=== PATIENT | female | born 1945 | race Caucasian/White ===

== ENCOUNTER → 2019-07-27 | Outpatient (CLI) | payer MEDICARE, OTHER ==
[~2019-07-27] MED LIST: APIX5TAB PO; ASPI-1197 PO; CHOL200041 PO; FEXO180T94 PO; HYDR-2534 PO; KRIL1CAP18 PO; LEVO5TAB13 PO; LOVA20TA3 PO; METO25 PO; UBID100C10 PO
== END | disposition home or self-care (01) ==
LOC: SHCH 13:13
PROVIDERS: ATTEND Internal Medicine Cardiovascular Disease
DX: R01.1 Cardiac murmur, unspecified (principal); R09.89 Other specified symptoms and signs involving the circulatory and respiratory systems
CPT/HCPCS: 93306; 93356; 93880

== ENCOUNTER → 2019-07-27 | Outpatient (CLI) | payer OTHER | END | disposition home or self-care (01) | LOC: OIH 13:13 | PROVIDERS: ATTEND Internal Medicine Cardiovascular Disease | DX: Z13.6 Encounter for screening for cardiovascular disorders (principal); J84.10 Pulmonary fibrosis, unspecified; D73.89 Other diseases of spleen | CPT/HCPCS: 75571 ==

== ENCOUNTER 2021-01-08 06:13 | Day surgery (SDC) | payer MEDICARE, OTHER ==
[2021-01-05 11:36] LABS: BASOPHILS % (AUTO) 0.3 % (0.0-5.0); EOSINOPHILS % (AUTO) 3.3 % (0.0-8.0); HEMATOCRIT 41.2 % (36-48); LYMPHOCYTES % (AUTO) 27.5 % (21.0-51.0); MEAN CORPUSCULAR HEMOGLOBIN 32.9 pg (27.0-33.0); MEAN CORPUSCULAR HGB CONC 32.8 g/dL (32.0-36.0); MEAN CORPUSCULAR VOLUME 100.5 fL (79-99); MONOCYTES % (AUTO) 7.6 % (3.0-13.0); NEUTROPHILS % (AUTO) 61.1 % (40.0-77.0); PLATELET COUNT (AUTO) 123 K/uL (130-400); RED CELL DISTRIBUTION WIDTH 13.9 % (11.0-15.5); WHITE BLOOD COUNT (AUTO) 6.6 K/uL (4.8-10.8)
[2021-01-05 11:57] LABS: CREATININE 0.7 mg/dL (0.5-1.5); POTASSIUM 4.1 mmol/L (3.5-5.1)
[2021-01-05 14:17] VITALS: BP 165/83
[2021-01-08] VITALS (12 sets, daily range): BP systolic 118–152; BP diastolic 58–81
[~2021-01-08] VITALS: Ht 172.7 cm; Wt 81.0 kg
[~2021-01-08 06:13] MED LIST changes: -ASPI-1197 PO; -CHOL200041 PO; +CLINDAMYCIN IVPB 900MG/50ML 50 ML IV SCH; -HYDR-2534 PO; +HYDR25TA PO; -KRIL1CAP18 PO; +KRIL1CAP19 PO; -LEVO5TAB13 PO; -METO25 PO; +METO25TA6 PO; +MONT10TA32 PO; +OXYB15TA19 PO; +RETIN A 0.05% TP; -UBID100C10 PO; +UBID100C45 PO; +VIT1CAPS5 PO
[2021-01-08] MEDS ORDERED: LACTATED RINGERS 1000ML 1,000 ML IV ONE (06:53)
[2021-01-08] MEDS ORDERED: BUPIVACAINE/PF 0.5% 30ML VIAL ONE (07:52)
[2021-01-08] MEDS ORDERED: IOPAMIDOL 10 ML VIAL ONE (08:07)
[2021-01-08] MEDS ORDERED: MIDAZOLAM HCL 1 MG/ML 2ML VIAL ONE (08:15)
[2021-01-08] MEDS: CEFAZOLIN SODIUM 1 GM VIAL ONE ×2 (08:15→08:22)
[2021-01-08] MEDS ORDERED: PROPOFOL 10 MG/ML 20ML VIAL IV ONE (08:17)
[2021-01-08] MEDS ORDERED: CEPH500B PO (09:00)
== END 2021-01-08 09:55 | disposition home or self-care (01) ==
LOC: DAH 06:13
PROVIDERS: ATTEND Orthopaedic Surgery
DX: M16.0 Bilateral primary osteoarthritis of hip (principal); G89.29 Other chronic pain; Z20.822 Contact with and (suspected) exposure to COVID-19; I10 Essential (primary) hypertension; K21.9 Gastro-esophageal reflux disease without esophagitis; I48.0 Paroxysmal atrial fibrillation; E78.5 Hyperlipidemia, unspecified; Z90.710 Acquired absence of both cervix and uterus; Z98.890 Other specified postprocedural states; Z82.49 Family history of ischemic heart disease and other diseases of the circulatory system
CPT/HCPCS: 20610; 36415; 73503; 80048; 85025; 87426; A4215; A4221; A4222; A4223; A4663; J0690; J1030; J2250; J2704; J3490; J7120; Q9966

== ENCOUNTER 2021-01-29 06:20 | Day surgery (SDC) | payer MEDICARE, OTHER ==
[2021-01-26 10:37] LABS: BASOPHILS % (AUTO) 0.5 % (0.0-5.0); EOSINOPHILS % (AUTO) 3.5 % (0.0-8.0); HEMATOCRIT 37.6 % (36-48); LYMPHOCYTES % (AUTO) 29.5 % (21.0-51.0); MEAN CORPUSCULAR HEMOGLOBIN 33.2 pg (27.0-33.0); MEAN CORPUSCULAR VOLUME 100.8 fL (79-99); MONOCYTES % (AUTO) 7.9 % (3.0-13.0); NEUTROPHILS % (AUTO) 58.3 % (40.0-77.0); PLATELET COUNT (AUTO) 113 K/uL (130-400); RED BLOOD CELL COUNT(AUTO) 3.73 MIL/uL (4.00-5.50); RED CELL DISTRIBUTION WIDTH 14.2 % (11.0-15.5); WHITE BLOOD COUNT (AUTO) 6.2 K/uL (4.8-10.8)
[2021-01-26 10:46] LABS: CREATININE 0.8 mg/dL (0.5-1.5); POTASSIUM 4.4 mmol/L (3.5-5.1)
[2021-01-26 15:25] VITALS: BP 129/63
[2021-01-29] VITALS (11 sets, daily range): BP systolic 128–160; BP diastolic 65–78
[~2021-01-29] VITALS: Ht 172.7 cm; Wt 81.7 kg
[~2021-01-29 06:20] MED LIST changes: -CLINDAMYCIN IVPB 900MG/50ML 50 ML IV SCH; -FEXO180T94 PO; +LISI20TA24 PO; -RETIN A 0.05% TP; -VIT1CAPS5 PO
[2021-01-29] MEDS: CEFAZOLIN SODIUM 1 GM VIAL ONE ×2 (06:38→08:18)
[2021-01-29] MEDS ORDERED: LACTATED RINGERS 1000ML 1,000 ML IV ONE (06:38)
[2021-01-29] MEDS ORDERED: IOPAMIDOL 10 ML VIAL ONE (07:54)
[2021-01-29] MEDS ORDERED: BUPIVACAINE/PF 0.5% 30ML VIAL ONE (07:59)
[2021-01-29] MEDS ORDERED: PROPOFOL 10 MG/ML 20ML VIAL IV ONE (08:13)
[2021-01-29] MEDS ORDERED: LIDOCAINE PF 100MG/5ML (2%) SYRINGE 5ML ONE (08:13)
[2021-01-29] MEDS ORDERED: SUCCINYLCHOLINE CHLORIDE 20 MG/ML 10 ML VIAL ONE (08:13)
[2021-01-29] MEDS ORDERED: FENTANYL CITRATE PF 50 MCG/1 ML 2ML VIAL ONE (08:14)
[2021-01-29] MEDS ORDERED: MIDAZOLAM HCL 1 MG/ML 2ML VIAL ONE (08:14)
== END 2021-01-29 09:51 | disposition home or self-care (01) ==
LOC: DAH 06:20
PROVIDERS: ATTEND Orthopaedic Surgery
DX: M16.12 Unilateral primary osteoarthritis, left hip (principal); Z20.822 Contact with and (suspected) exposure to COVID-19; I10 Essential (primary) hypertension; K21.9 Gastro-esophageal reflux disease without esophagitis; I48.0 Paroxysmal atrial fibrillation; E78.5 Hyperlipidemia, unspecified; Z79.899 Other long term (current) drug therapy; Z79.01 Long term (current) use of anticoagulants; Z90.710 Acquired absence of both cervix and uterus; Z98.890 Other specified postprocedural states; Z82.49 Family history of ischemic heart disease and other diseases of the circulatory system; Z72.89 Other problems related to lifestyle; Z88.8 Allergy status to other drugs, medicaments and biological substances
CPT/HCPCS: 20610; 36415; 73502; 80048; 85025; 87635; 93005; A4215; A4221; A4222; A4223; A4663; A4930; A5120; C9803; J0330; J0690; J1030; J2001; J2250; J2704; J3010; J3490; J7120; Q9966

== ENCOUNTER 2021-04-11 06:22 | Day surgery (SDC) | payer MEDICARE, OTHER ==
[2021-04-09 10:48] LABS: BASOPHILS % (AUTO) 0.5 % (0.0-5.0); EOSINOPHILS % (AUTO) 3.1 % (0.0-8.0); HEMATOCRIT 39.1 % (36-48); LYMPHOCYTES % (AUTO) 30.2 % (21.0-51.0); MEAN CORPUSCULAR HEMOGLOBIN 33.8 pg (27.0-33.0); MEAN CORPUSCULAR HGB CONC 33.5 g/dL (32.0-36.0); MEAN CORPUSCULAR VOLUME 100.8 fL (79-99); NEUTROPHILS % (AUTO) 57.2 % (40.0-77.0); PLATELET COUNT (AUTO) 134 K/uL (130-400); RED BLOOD CELL COUNT(AUTO) 3.88 MIL/uL (4.00-5.50); RED CELL DISTRIBUTION WIDTH 14.2 % (11.0-15.5); WHITE BLOOD COUNT (AUTO) 5.8 K/uL (4.8-10.8)
[2021-04-09 11:16] LABS: CREATININE 0.9 mg/dL (0.5-1.5); POTASSIUM 4.3 mmol/L (3.5-5.1)
[2021-04-10 11:00] VITALS: BP 127/67
[~2021-04-11] VITALS: Ht 172.7 cm; Wt 80.5 kg
[2021-04-11] VITALS (11 sets, daily range): BP systolic 114–145; BP diastolic 50–79
[~2021-04-11 06:22] MED LIST changes: +AZEL137S11 NS; +CALC-866 PO; +CLINDAMYCIN IVPB 900MG/50ML 50 ML IV SCH; +ESOM40CA PO; +FEXO180T94 PO; +MONT-39 PO; -MONT10TA32 PO; +MVIT PO; +POLY17PO4 PO
[2021-04-11] MEDS ORDERED: LACTATED RINGERS 1000ML 1,000 ML IV ONE (06:56)
[2021-04-11] MEDS: CEFAZOLIN SODIUM 1 GM VIAL ONE ×2 (07:02→08:05)
[2021-04-11] MEDS ORDERED: BUPIVACAINE/PF 0.5% 10ML VIAL ONE (07:22)
[2021-04-11] MEDS ORDERED: ISOVUE-M 200 20 ML VIAL IT ONE (07:26)
[2021-04-11] MEDS ORDERED: MIDAZOLAM HCL 1 MG/ML 2ML VIAL ONE (08:04)
[2021-04-11] MEDS ORDERED: PROPOFOL 10 MG/ML 20ML VIAL IV ONE (08:10)
== END 2021-04-11 10:20 | disposition home or self-care (01) ==
LOC: DAH 06:22
PROVIDERS: ATTEND Orthopaedic Surgery
DX: M16.11 Unilateral primary osteoarthritis, right hip (principal); Z20.822 Contact with and (suspected) exposure to COVID-19; I10 Essential (primary) hypertension; K21.9 Gastro-esophageal reflux disease without esophagitis; I48.0 Paroxysmal atrial fibrillation; E78.5 Hyperlipidemia, unspecified; Z98.890 Other specified postprocedural states; Z79.899 Other long term (current) drug therapy; Z79.01 Long term (current) use of anticoagulants
CPT/HCPCS: 20610; 36415; 80048; 85025; 87635; 93005; A4215; A4221; A4222; A4223; A4663; A4930; A5120; C9803; J0690; J1030; J2250; J2704; J3490; J7120; Q9966; 27093

== ENCOUNTER → 2021-05-22 | Outpatient (CLI) | payer MEDICARE, OTHER ==
[~2021-05-22] MED LIST changes: -CLINDAMYCIN IVPB 900MG/50ML 50 ML IV SCH
== END | disposition home or self-care (01) ==
LOC: SHCH 14:47
PROVIDERS: ATTEND Internal Medicine Cardiovascular Disease
DX: I11.0 Hypertensive heart disease with heart failure (principal); I50.32 Chronic diastolic (congestive) heart failure
CPT/HCPCS: 93306; 93356

== ENCOUNTER 2021-07-12 06:39 | Day surgery (SDC) | payer MEDICARE, OTHER ==
[2021-07-10 09:54] VITALS: BP 147/71
[2021-07-10 10:17] LABS: BASOPHILS % (AUTO) 0.4 % (0.0-5.0); EOSINOPHILS % (AUTO) 3.7 % (0.0-8.0); HEMATOCRIT 39.9 % (36-48); MEAN CORPUSCULAR HEMOGLOBIN 33.3 pg (27.0-33.0); MEAN CORPUSCULAR HGB CONC 32.3 g/dL (32.0-36.0); MEAN CORPUSCULAR VOLUME 103.1 fL (79-99); MONOCYTES % (AUTO) 9.3 % (3.0-13.0); NEUTROPHILS % (AUTO) 54.4 % (40.0-77.0); PLATELET COUNT (AUTO) 132 K/uL (130-400); RED BLOOD CELL COUNT(AUTO) 3.87 MIL/uL (4.00-5.50); RED CELL DISTRIBUTION WIDTH 14.4 % (11.0-15.5); WHITE BLOOD COUNT (AUTO) 4.9 K/uL (4.8-10.8)
[2021-07-10 10:21] LABS: CREATININE 0.8 mg/dL (0.5-1.5); POTASSIUM 4.5 mmol/L (3.5-5.1)
[2021-07-12] VITALS (12 sets, daily range): BP systolic 112–143; BP diastolic 53–78
[~2021-07-12] VITALS: Ht 172.7 cm; Wt 82.9 kg
[~2021-07-12 06:39] MED LIST changes: -AZEL137S11 NS; -CALC-866 PO; +CLINDAMYCIN IVPB 900MG/50ML 50 ML IV SCH; -ESOM40CA PO; -FEXO180T94 PO; -KRIL1CAP19 PO; +METO-408 PO; -METO25TA6 PO; -MVIT PO; -POLY17PO4 PO; -UBID100C45 PO
[2021-07-12] MEDS ORDERED: LACTATED RINGERS 1000ML 1,000 ML IV ONE (06:44)
[2021-07-12] MEDS ORDERED: CEFAZOLIN SODIUM 1 GM VIAL ONE (07:23)
[2021-07-12] MEDS ORDERED: MIDAZOLAM HCL 1 MG/ML 2ML VIAL ONE (07:36)
[2021-07-12] MEDS ORDERED: LIDOCAINE PF 100MG/5ML (2%) SYRINGE 5ML ONE (07:36)
[2021-07-12] MEDS ORDERED: PROPOFOL 10 MG/ML 20ML VIAL IV ONE (07:36)
[2021-07-12] MEDS ORDERED: FENTANYL CITRATE PF 50 MCG/1 ML 5ML AMP IV ONE (07:36)
[2021-07-12] MEDS ORDERED: BUPIVACAINE/PF 0.5% 30ML VIAL ONE (07:53)
[2021-07-12] MEDS ORDERED: IOPAMIDOL 10 ML VIAL ONE (07:58)
== END 2021-07-12 10:21 | disposition home or self-care (01) ==
LOC: DAH 06:39
PROVIDERS: ATTEND Orthopaedic Surgery
DX: M16.12 Unilateral primary osteoarthritis, left hip (principal); Z20.822 Contact with and (suspected) exposure to COVID-19; I10 Essential (primary) hypertension; I48.91 Unspecified atrial fibrillation; K21.9 Gastro-esophageal reflux disease without esophagitis; E78.5 Hyperlipidemia, unspecified; I48.0 Paroxysmal atrial fibrillation; Z88.8 Allergy status to other drugs, medicaments and biological substances; Z98.890 Other specified postprocedural states; Z90.710 Acquired absence of both cervix and uterus; Z82.49 Family history of ischemic heart disease and other diseases of the circulatory system; Z72.89 Other problems related to lifestyle
CPT/HCPCS: 20610; 36415; 73503; 80048; 85025; 87635; 93005; A4215; A4221; A4222; A4223; A4663; C9803; J0690; J1030; J2001; J2250; J2704; J3010; J3490; J7120; Q9966

== ENCOUNTER 2021-08-06 06:55 | Day surgery (SDC) | payer MEDICARE, OTHER ==
[2021-08-03 10:10] LABS: BASOPHILS % (AUTO) 0.2 % (0.0-5.0); EOSINOPHILS % (AUTO) 2.4 % (0.0-8.0); LYMPHOCYTES % (AUTO) 27.4 % (21.0-51.0); MEAN CORPUSCULAR HEMOGLOBIN 34.3 pg (27.0-33.0); MEAN CORPUSCULAR HGB CONC 33.1 g/dL (32.0-36.0); MEAN CORPUSCULAR VOLUME 103.7 fL (79-99); NEUTROPHILS % (AUTO) 60.8 % (40.0-77.0); PLATELET COUNT (AUTO) 133 K/uL (130-400); RED BLOOD CELL COUNT(AUTO) 4.05 MIL/uL (4.00-5.50); WHITE BLOOD COUNT (AUTO) 5.4 K/uL (4.8-10.8)
[2021-08-03 10:14] VITALS: BP 142/69
[2021-08-03 10:21] LABS: CREATININE 0.7 mg/dL (0.5-1.5); POTASSIUM 4.8 mmol/L (3.5-5.1)
[2021-08-06] VITALS (11 sets, daily range): BP systolic 123–140; BP diastolic 62–73
[~2021-08-06] VITALS: Ht 172.7 cm; Wt 80.8 kg
[~2021-08-06 06:55] MED LIST changes: -CLINDAMYCIN IVPB 900MG/50ML 50 ML IV SCH; +LACTATED RINGERS 1000ML 1,000 ML IV ONE; -MONT-39 PO; +[UNRECOGNIZED DRUG - CODE] TP
[2021-08-06] MEDS ORDERED: BUPIVACAINE/PF 0.5% 30ML VIAL ONE (07:36)
[2021-08-06] MEDS ORDERED: FAMOTIDINE 20MG VIAL IV ONE (07:43)
[2021-08-06] MEDS ORDERED: MIDAZOLAM HCL 1 MG/ML 2ML VIAL ONE (07:50)
[2021-08-06] MEDS ORDERED: PROPOFOL 10 MG/ML 20ML VIAL IV ONE (07:50)
[2021-08-06] MEDS ORDERED: PHENYLEPHRINE HCL 10 MG/ML 1ML VIAL IV ONE (07:54)
[2021-08-06] MEDS ORDERED: IOPAMIDOL 10 ML VIAL ONE (07:58)
[2021-08-06] MEDS ORDERED: CEFAZOLIN SODIUM 1 GM VIAL ONE (08:41)
== END 2021-08-06 10:20 | disposition home or self-care (01) ==
LOC: DAH 06:55
PROVIDERS: ATTEND Orthopaedic Surgery
DX: M16.11 Unilateral primary osteoarthritis, right hip (principal); Z20.822 Contact with and (suspected) exposure to COVID-19; G89.29 Other chronic pain; I10 Essential (primary) hypertension; K21.9 Gastro-esophageal reflux disease without esophagitis; I48.0 Paroxysmal atrial fibrillation; E78.5 Hyperlipidemia, unspecified; Z98.890 Other specified postprocedural states; Z98.51 Tubal ligation status; Z90.710 Acquired absence of both cervix and uterus; Z82.49 Family history of ischemic heart disease and other diseases of the circulatory system; Z72.89 Other problems related to lifestyle; Z88.8 Allergy status to other drugs, medicaments and biological substances
CPT/HCPCS: 20610; 36415; 73503; 80048; 85025; 87635; 93005; A4215; A4221; A4222; A4223; A4663; C9803; J0690; J1030; J2250; J2704; J3490 ×2; J7120; Q9966; J2370

== ENCOUNTER 2022-07-08 06:03 | Day surgery (SDC) | payer MEDICARE, OTHER ==
[2022-07-05 11:04] LABS: BASOPHILS % (AUTO) 0.4 % (0.0-5.0); EOSINOPHILS % (AUTO) 2.5 % (0.0-8.0); HEMATOCRIT 40.1 % (36-48); LYMPHOCYTES % (AUTO) 31.3 % (21.0-51.0); MEAN CORPUSCULAR HEMOGLOBIN 34.2 pg (27.0-33.0); MEAN CORPUSCULAR HGB CONC 34.2 g/dL (32.0-36.0); MONOCYTES % (AUTO) 9.5 % (3.0-13.0); NEUTROPHILS % (AUTO) 56.1 % (40.0-77.0); PLATELET COUNT (AUTO) 141 K/uL (130-400); RED BLOOD CELL COUNT(AUTO) 4.01 MIL/uL (4.00-5.50); RED CELL DISTRIBUTION WIDTH 13.5 % (11.0-15.5); WHITE BLOOD COUNT (AUTO) 4.8 K/uL (4.8-10.8)
[2022-07-05 11:11] VITALS: BP 142/77
[2022-07-05 11:17] LABS: ALBUMIN 4.1 g/dL (3.5-5.0); CARBON DIOXIDE 32 mmol/L (21-32); CHLORIDE 95 mmol/L (101-111); CREATININE 0.7 mg/dL (0.5-1.5); GLOMERULAR FILTR. RATE CALC 86 mL/min (>60); GLUCOSE,RANDOM 96 mg/dL (70-105); POTASSIUM 4.2 mmol/L (3.5-5.1); SODIUM SERUM 130 mmol/L (136-145); UREA NITROGEN, BLOOD 15 mg/dL (7-18)
[2022-07-05 11:22] LABS: CRP QUANTITATIVE < 2.00 mg/L (0.00-9.0)
[~2022-07-08] VITALS: Ht 172.7 cm; Wt 73.4 kg
[2022-07-08] VITALS (12 sets, daily range): BP systolic 114–134; BP diastolic 57–70
[~2022-07-08 06:03] MED LIST changes: +BUPIVACAINE/EPI/PF 0.25% 50 ML VIAL IJ ONE; +BUPIVACAINE/PF 0.25% 10ML VIAL IJ ONE; -LACTATED RINGERS 1000ML 1,000 ML IV ONE
[2022-07-08] MEDS ORDERED: LACTATED RINGERS 1000ML 1,000 ML IV ONE (06:24)
[2022-07-08] MEDS ORDERED: PROPOFOL 10 MG/ML 20ML VIAL IV ONE (07:09)
[2022-07-08] MEDS ORDERED: LIDOCAINE HCL-MPF 1% 5ML AMP IJ ONE (07:09)
[2022-07-08] MEDS ORDERED: FENTANYL CITRATE PF 50 MCG/1 ML 2ML VIAL ONE (07:09)
[2022-07-08] MEDS ORDERED: MIDAZOLAM HCL 1 MG/ML 2ML VIAL ONE (07:09)
[2022-07-08] MEDS ORDERED: ONDANSETRON 4MG INJ ONE (07:13)
[2022-07-08] MEDS ORDERED: IOHEXOL 180 MG/ML 20 ML VIAL ONE (07:41)
[2022-07-08] MEDS ORDERED: BUPIVACAINE/EPI/PF 0.25% 50 ML VIAL IJ ONE (07:47)
== END 2022-07-08 09:20 | disposition home or self-care (01) ==
LOC: DAH 06:03
PROVIDERS: ATTEND Student in an Organized Health Care Education/Training Program
DX: M16.11 Unilateral primary osteoarthritis, right hip (principal); Z20.822 Contact with and (suspected) exposure to COVID-19; G89.29 Other chronic pain; K21.9 Gastro-esophageal reflux disease without esophagitis; I10 Essential (primary) hypertension; E78.5 Hyperlipidemia, unspecified; I48.0 Paroxysmal atrial fibrillation; Z79.899 Other long term (current) drug therapy; Z79.82 Long term (current) use of aspirin
CPT/HCPCS: 87426; 82040; 80048; 85025; 84134; 86140; 36415; 93005; 20610; 77002; 73502; A4663; J7120; J2250; J2704; J2405; J1030 ×2; J3490 ×3; Q9965; A4215; A4223; A4222; A4221; J3010

== ENCOUNTER 2022-12-08 19:25 | Inpatient (IN) | payer MEDICARE, OTHER ==
[~2022-12-08] VITALS: Ht 172.7 cm; Wt 69.6 kg
[~2022-12-08 19:25] MED LIST changes: +AMLO2.5T4 PO; -BUPIVACAINE/EPI/PF 0.25% 50 ML VIAL IJ ONE; -BUPIVACAINE/PF 0.25% 10ML VIAL IJ ONE; +CYCL-309 PO; +DOCU-116 PO; +FEXO-263 PO; +HYDR-4060 PO; -LOVA20TA3 PO; +METR45G TP; +OMEP20CA12 PO; +PROM25TA7 PO
[2022-12-08 23:34] LABS: APPEARANCE,URINE CLEAR (CLEAR); BILIRUBIN,URINE NEGATIVE (NEGATIVE); COLOR,URINE LIGHT-YELLOW (YELLOW); GLUCOSE, URINE (UA) NEGATIVE (NEGATIVE); KETONES,URINE 5 mg/dL (NEGATIVE); LEUKOCYTE ESTERASE ,URINE NEGATIVE Leu/uL (NEGATIVE); NITRATE,URINE NEGATIVE (NEGATIVE); OCCULT BLOOD,URINE NEGATIVE (NEGATIVE); PH,URINE 6.5 (5.0-8.0); PROTEIN,URINE 30 mg/dL (NEGATIVE); UROBILINOGEN,URINE 0.2 mg/dL (0.2-1.0)
[2022-12-09 00:16] LABS: BASOPHILS % (AUTO) 0.4 % (0.0-5.0); EOSINOPHILS % (AUTO) 1.1 % (0.0-8.0); HEMATOCRIT 32.9 % (36-48); LYMPHOCYTES % (AUTO) 30.9 % (21.0-51.0); MEAN CORPUSCULAR HEMOGLOBIN 32.4 pg (27.0-33.0); MEAN CORPUSCULAR HGB CONC 34.7 g/dL (32.0-36.0); MEAN CORPUSCULAR VOLUME 93.5 fL (79-99); MONOCYTES % (AUTO) 12.3 % (3.0-13.0); NEUTROPHILS % (AUTO) 54.8 % (40.0-77.0); PLATELET COUNT (AUTO) 172 K/uL (130-400); RED BLOOD CELL COUNT(AUTO) 3.52 MIL/uL (4.00-5.50); WHITE BLOOD COUNT (AUTO) 7.3 K/uL (4.8-10.8)
[2022-12-09 00:32] LABS: ALBUMIN 3.6 g/dL (3.5-5.0); CREATININE 0.7 mg/dL (0.5-1.5); POTASSIUM 3.9 mmol/L (3.5-5.1); TOTAL PROTEIN, SERUM 7.7 g/dL (6.0-8.3)
[2022-12-09] MEDS ORDERED: IOHEXOL 350 MG/ML 100ML INFUS..BTL IV ONE (00:57)
[2022-12-09] MEDS ORDERED: 0.9%NACL 1000ML 1,000 ML IV SCH (01:00)
[2022-12-09] MEDS ORDERED: ACETAMINOPHEN 325 MG TAB PO PRN ×2 (04:00)
[2022-12-09] MEDS ORDERED: ONDANSETRON 4MG INJ IV PRN (04:00)
[2022-12-09] MEDS: 0.9%NACL 1000ML 1,000 ML IV SCH ×2 (05:19→17:55)
[2022-12-09] MEDS ORDERED: DOCUSATE SODIUM 100 MG CAP PO ONE (08:54)
[2022-12-09] MEDS: POLYETHYLENE GLYCOL 3350 17 GM POWD.PACK PO SCH (08:56)
[2022-12-09] MEDS: DOCUSATE SODIUM 100 MG CAP PO SCH (08:56)
[2022-12-09] MEDS: FAMOTIDINE 20MG TAB PO SCH ×2 (08:56→21:19)
[2022-12-09 09:20] LABS: CREATININE 0.6 mg/dL (0.5-1.5); POTASSIUM 3.1 mmol/L (3.5-5.1)
[2022-12-09] MEDS: LACTULOSE 20 GM/30 ML UDCUP PO SCH ×2 (13:30→21:19)
[2022-12-09] MEDS ORDERED: LACTULOSE 20 GM/30 ML UDCUP ONE (13:35)
[2022-12-09] MEDS ORDERED: 0.9% NACL 250ML IV ONE (16:00)
[2022-12-09] MEDS ORDERED: GLYCERIN TP ONE (16:00)
[2022-12-09] MEDS ORDERED: MINERAL OIL 30 ML UDCUP PR ONE (16:00)
[2022-12-09] MEDS: Fexofenadine HCl 180 MG PO SCH (21:00)
[2022-12-09] MEDS: METOPROLOL SUCCINATE 25 MG TAB.SR.24H PO SCH (21:19)
[2022-12-09 22:25] VITALS: BP 150/72; PULSE 81; RESP 19
[2022-12-10] MEDS ORDERED: LOVA20TA3 PO (00:22)
[2022-12-10] MEDS ORDERED: FEXO-23 PO (00:24)
[2022-12-10 04:00] VITALS: BP 140/72; PULSE 65; RESP 18
[2022-12-10 05:11] LABS: CREATININE 0.8 mg/dL (0.5-1.5); POTASSIUM 3.5 mmol/L (3.5-5.1)
[2022-12-10] MEDS: 0.9%NACL 1000ML 1,000 ML IV SCH ×2 (06:11→21:25)
[2022-12-10 08:00] VITALS: BP 128/67; PULSE 64; RESP 20
[2022-12-10] MEDS: AMLODIPINE 2.5 MG TAB PO SCH (08:29)
[2022-12-10] MEDS: POLYETHYLENE GLYCOL 3350 17 GM POWD.PACK PO SCH (08:29)
[2022-12-10] MEDS: LACTULOSE 20 GM/30 ML UDCUP PO SCH (08:29)
[2022-12-10] MEDS: FAMOTIDINE 20MG TAB PO SCH ×2 (08:29→21:25)
[2022-12-10] MEDS: DOCUSATE SODIUM 100 MG CAP PO SCH (08:30)
[2022-12-10 12:00] VITALS: BP 127/62; PULSE 72; RESP 20
[2022-12-10 16:00] VITALS: BP 140/88; PULSE 81; RESP 20
[2022-12-10 20:00] VITALS: BP 144/68; PULSE 74; RESP 20; O2SAT 97
[2022-12-10] MEDS: Fexofenadine HCl 180 MG PO SCH (21:00)
[2022-12-10] MEDS: METOPROLOL SUCCINATE 25 MG TAB.SR.24H PO SCH (21:25)
[2022-12-11] VITALS: BP 132/62; PULSE 74; RESP 18
[2022-12-11 04:00] VITALS: BP 143/73; PULSE 74; RESP 18
[2022-12-11 08:00] VITALS: BP 137/63; PULSE 63; RESP 16; O2SAT 99
[2022-12-11] MEDS: FAMOTIDINE 20MG TAB PO SCH (08:20)
[2022-12-11] MEDS: 0.9%NACL 1000ML 1,000 ML IV SCH (08:20)
[2022-12-11] MEDS: AMLODIPINE 2.5 MG TAB PO SCH (08:20)
[2022-12-11 11:48] VITALS: BP 154/73; PULSE 77; RESP 16
== END 2022-12-11 13:30 | disposition home or self-care (01) | DRG 641 ==
LOC: EDH 19:25 → EDHIP 12-09 03:36 → 4DH 12-09 22:18
PROVIDERS: ADMIT Hospitalist; ATTEND Hospitalist
DX: E87.1 Hypo-osmolality and hyponatremia (principal); I10 Essential (primary) hypertension; D64.9 Anemia, unspecified; I48.91 Unspecified atrial fibrillation; Z96.641 Presence of right artificial hip joint; R63.1 Polydipsia; F55.2 Abuse of laxatives; K59.00 Constipation, unspecified; Z79.01 Long term (current) use of anticoagulants; Z90.710 Acquired absence of both cervix and uterus
CPT/HCPCS: 36415; 74177; 80048; 80053; 81003; 83605; 83690; 83930; 84443; 85025; 99291; G0378; J7050; Q9967

== ENCOUNTER → 2023-06-18 | Outpatient (CLI) | payer MEDICARE, OTHER ==
[~2023-06-18] MED LIST changes: -CYCL-309 PO; +FEXO-23 PO; -HYDR-4060 PO; +LOVA20TA3 PO; -METR45G TP; -OMEP20CA12 PO; -[UNRECOGNIZED DRUG - CODE] TP
== END | disposition home or self-care (01) ==
LOC: RAH 13:02
PROVIDERS: ATTEND Student in an Organized Health Care Education/Training Program
DX: M25.551 Pain in right hip (principal); M85.88 Other specified disorders of bone density and structure, other site; Z96.641 Presence of right artificial hip joint
CPT/HCPCS: 73700